=== PATIENT | male | born 1965 | race Caucasian/White ===

== ENCOUNTER 2017-04-04 23:29 | Outpatient (CLI) | payer SELFPAY | END 2017-04-04 23:30 | disposition critical access hospital (66) | LOC: EMS 23:29 | PROVIDERS: ATTEND Surgery | DX: R07.9 Chest pain, unspecified (principal) | CPT/HCPCS: A0425; A0427 ==

== ENCOUNTER 2017-04-05 00:03 | Emergency (ER) | payer SELFPAY ==
--- NOTE | 2017-04-05 00:30 | ED Physician Documentation ---
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 No: Diaphoresis, Nausea, Vomiting, Feeling faint / dizzy Similar symptoms before: Has not had sx before Recently seen: Not recently seen - Additional information Additional information: patient is visiting [place] from [place], was at [facility] when he had sudden onset left chest pain radiating down left arm. He also had hematemesis x 2 at that time, which he says is also not something he has experienced before. He has factor V Leiden, which has resulted in BLE DVT, for which he was initially put on Coumadin and Lovenox without improvement and thus he had filters put in bilateral iliac veins. He is on eliquis for the leiden and DVT history Review of Systems Constitutional: reports: Reviewed and negative Eyes: reports: Reviewed and negative Ears: reports: Reviewed and negative Nose: reports: Reviewed and negative Throat: reports: Reviewed and negative Cardiac: reports: Chest pain / pressure, Pedal edema (BLE (he says this is new, noticed over past 1-2 days)). denies: Palpitations, Calf pain Respiratory: reports: Dyspnea. denies: Cough, Hemoptysis, Wheezing GI: reports: Vomiting, Hematemesis. denies: Abdominal Pain, Nausea, Bloody / black stool : denies: Dysuria, Frequency Skin: reports: Reviewed and negative Musculoskeletal: reports: Reviewed and negative Neurologic: reports: Reviewed and negative PD PAST MEDICAL HISTORY - Past Medical History Past Medical History: Yes Cardiovascular: Deep vein thrombosis - Past Surgical History Other past surgical history: bilateral iliac vein filters - Present Medications Home Medications: Ambulatory Orders Medication Instructions Recorded Confirmed Apixaban [Eliquis] 5 mg 04/05/17 - Allergies Allergies/Adverse Reactions: Allergies Allergy/AdvReac Type Severity Reaction Status Date / Time No Known Drug Allergies Allergy Verified 04/05/17 01:33 - Living Situation Living Situation: reports: Alone Living Arrangement: reports: At home - Social History Does the pt drink ETOH?: No 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)) PD ED PE NORMAL - Vitals Vital signs reviewed: Yes - General General: Alert and oriented X 3, No acute distress, Well developed/nourished - HEENT HEENT: Moist mucous membranes - Neck Neck: Supple, no meningeal sign - Cardiac Cardiac: RRR, No murmur, No gallop, No rub - Respiratory Respiratory: No respiratory distress, Clear bilaterally - Abdomen Abdomen: Normal bowel sounds, Soft, Non tender, Non distended - Back Back: No CVA TTP - Derm Derm: Normal color, Warm and dry - Neuro Neuro: Alert and oriented X 3 PD ED PE EXPANDED - Extremities Extremities: Pedal edema bilateral Results - Vitals Vitals: Vital Signs - 24 hr 04/05/17 04/05/17 04/05/17 00:05 01:26 02:09 Temperature 36.3 C L 36.4 C L Heart Rate 88 68 66 Respiratory 20 15 20 Rate Blood Pressure 134/79 H 120/71 119/68 O2 Saturation 99 96 99 04/05/17 04/05/17 04/05/17 03:04 03:39 04:42 Temperature Heart Rate 77 64 72 Respiratory 15 20 15 Rate Blood Pressure 128/66 125/87 H 105/59 L O2 Saturation 100 95 98 04/05/17 08:12 Temperature 37.0 C Heart Rate 87 Respiratory 17 Rate Blood Pressure 128/75 O2 Saturation 99 Oxygen O2 Source Room air - EKG (time done) No standard instances Rate: Rate (enter#) (81) Rhythm: NSR [place]: Normal Intervals: Normal IN QRS: Normal Ischemia: ST elevation c/w repol - Labs Labs: Laboratory Tests 04/05/17 04/05/17 04/05/17 00:48 00:48 00:48 WBC 5.0 RBC 4.32 L Hgb 10.2 L Hct 32.5 L MCV 75.3 L MCH 23.6 L MCHC 31.4 L RDW 18.4 H Plt Count 196 MPV 9.3 Neut # 3.1 Lymph # 1.0 L [place] # 0.5 Eos # 0.5 Baso # 0.0 Absolute Nucleated RBC 0.00 Nucleated RBC % 0.0 PT 12.9 H INR 1.1 APTT 24.7 L Sodium 137 Potassium 3.7 Chloride 102 Carbon Dioxide 26 Anion Gap 9.0 BUN 24 H Creatinine 0.7 Estimated GFR (MDRD) 120 Glucose 116 H Calcium 8.8 Troponin I B-Natriuretic Peptide 04/05/17 04/05/17 00:48 00:48 WBC RBC Hgb Hct MCV MCH MCHC RDW Plt Count MPV Neut # Lymph # [place] # Eos # Baso # Absolute Nucleated RBC Nucleated RBC % PT INR APTT Sodium Potassium Chloride Carbon Dioxide Anion Gap BUN Creatinine Estimated GFR (MDRD) Glucose Calcium Troponin I < 0.04 B-Natriuretic Peptide 27 - Rads (name of study) chest xray Radiology: Prelim report reviewed, See rad report PD MEDICAL DECISION MAKING - ED course Complexity details: reviewed results, re-evaluated patient, considered differential, d/w patient ED course: Initially, plan was to admit this patient to [facility], and Dr. Mae evaluated patient in ED and was prepared to write admission orders. However, she was unaware that there are no surgical services available at [facility] this weekend due to construction, and when she realized this during our discussion of the case ( after she evaluated patient), she recommended transfer to facility that has EGD capability. D/W GI telecommunications facility examiner at [facility] who agrees patient would be appropriate for transfer to [facility], but to hospitalist's service. D/W Dr. Lazaro, accepts for transfer. RNs able to draw blood but after multiple attempts, they were unable to establish IV. I then tried right EJ but was unable to do so. Medic (Pepe) was in ED after having brought in another patient, and I asked if he could attempt EJ. He was able to establish left EJ, and patient was subsequently transferred to [facility]. Departure - Departure Disposition: 02 Transfer Acute Care Hosp Clinical Impression: Chest pain, Upper gastrointestinal bleeding Condition: Stable Discharge Date/Time: 04/05/17 08:17
[2017-04-05 01:01] LABS: BASOPHILS % (AUTO) 0.6 %; EOSINOPHILS # (AUTO) 0.5 10^3/uL (0.0-0.7); EOSINOPHILS % (AUTO) 9.3 %; HCT - HEMATOCRIT 32.5 % (42.0-52.0); HGB - HEMOGLOBIN 10.2 g/dL (14.0-18.0); LYMPHOCYTES % (AUTO) 19.7 %; MEAN CORPUSCULAR HEMOGLOBIN 23.6 pg (27.0-31.0); MEAN CORPUSCULAR HGB CONC 31.4 g/dL (32.0-36.0); MEAN CORPUSCULAR VOLUME 75.3 fL (80.0-94.0); MEAN PLATELET VOLUME 9.3 fL (7.4-11.4); MONOCYTES # (AUTO) 0.5 10^3/uL (0.0-1.0); MONOCYTES % (AUTO) 9.6 %; NEUTROPHILS # (AUTO) 3.1 10^3/uL (1.5-6.6); NEUTROPHILS % (AUTO) 60.8 %; RED BLOOD COUNT 4.32 10^6/uL (4.70-6.10); RED CELL DISTRIBUTION WIDTH 18.4 % (12.0-15.0)
[2017-04-05 01:02] LABS: INR 1.1 (0.8-1.2); PT - PROTHROMBIN TIME 12.9 secs (9.9-12.6)
[2017-04-05 01:06] LABS: CALCIUM 8.8 mg/dL (8.5-10.3); CREATININE 0.7 mg/dL (0.6-1.2); POTASSIUM 3.7 mmol/L (3.5-5.0)
[2017-04-05 01:09] LABS: PARTIAL THROMBOPLASTIN TIME 24.7 secs (24.9-33.3)
--- NOTE | 2017-04-05 01:28 | XRAY Preliminary Report ---
Exam: XR CHEST 2 VIEW PA/LAT IMPRESSION: Hypoventilatory single view chest with borderline cardiomegaly but without definite acute process. [id number]
--- NOTE | 2017-04-05 01:31 | XRAY Report ---
EXAM: CHEST RADIOGRAPHY EXAM DATE: 04/05/2017 01:06 AM. CLINICAL HISTORY: Chest pain. COMPARISON: 03/28/2017, CT 03/29/2017. TECHNIQUE: 2 views. FINDINGS: Lungs/Pleura: Low volumes. No focal opacities evident with exception of mild left lung base probable scarring/atelectasis over the elevated diaphragm. No gross pneumothorax or large effusion. Mediastinum: Borderline cardiomegaly. No mediastinal shift. Other: None. IMPRESSION: Hypoventilatory single view chest with borderline cardiomegaly but without definite acute process. [facility] Referring Provider Line: [phone] SITE ID: [id number]
[2017-04-05] MEDS ORDERED: LIDOCAINE 1% 2 ML VIAL ONE (05:29)
[2017-04-05] MEDS ORDERED: MORPHINE 2 MG/ML SYRINGE IVP STA (06:18)
[2017-04-05] MEDS ORDERED: MORPHINE 2 MG/ML SYRINGE ONE (06:25)
[2017-04-05] MEDS ORDERED: SODIUM CHLORIDE 0.9% 1,000 ML IV STA (07:08)
[2017-04-05 08:12] VITALS: BP 128/75
--- NOTE | 2017-04-05 10:04 | CONSULTATION NOTE ---
OUTPATIENT/ER CONSULTATION DATE OF CONSULTATION: 04/05/2017 00:00:00 REQUESTING PROVIDER: Consultation was requested by the ER physician, Dr. Zambrano. REASON FOR CONSULTATION: To evaluate the patient for admission to [facility] for rapid cardiac rule out. HISTORY OF PRESENT ILLNESS: The patient is a 51-year-old white male who is visiting from [place], we do not have prior medical records of this patient in our system. The patient reported somewhat contradictory history to EMS ER and finally to me. Initially, at EMS and to the ER physician, the patient reported that his chief complaint was chest pain which started suddenly, radiating to his left arm. Subsequently, when I interviewed him, he reported the following history. Around 10 p.m. on 04/04/2017, [facility] at which time his "heart started pounding," he described it as a fast heartbeat but no chest pain. Subsequently, he became nauseous and vomited fresh red blood. It was about a cup full. He never experienced similar problem in the past. It worried him quite a bit. Therefore, he asked the [facility] terminal attendant to call 911. When I examined this patient, he did not report any symptoms of chest pain or shortness of breath. Other than vomiting blood, he really offered no complaint. Subsequently, when I examined him and I noticed he had lymphedema and I asked him about swollen legs, he told me that that is a new problem as well and has been present for about a day. The patient denied undergoing any GI procedures such as upper GI endoscopy or colonoscopy, he never had any bowel problem and never experienced GI bleed prior to today. The patient's background is notable for factor V Leiden deficiency. He reports taking Eliquis, and aspirin. In addition, he also reports having an IVC filter, although somewhat unusual that he reports he has bilateral iliac IVC filters. PAST MEDICAL HISTORY: 1. DVT. 2. Factor V deficiency. MEDICATIONS: 1. Eliquis. 2. Aspirin. FAMILY HISTORY: Positive for cerebrovascular accident and coronary artery disease in the mother and factor V deficiency. SOCIAL HISTORY: The patient does not smoke, does not drink, denied illicit drug use. He used to work at [employer], had a desk job. REVIEW OF SYSTEMS: Please see pertinent positives and pertinent negatives listed above in history of present illness. The patient did not report additional complaints on the 12-point review. ER workup reviewed per electronic medical record. Pertinent positives included anemia with hemoglobin of 10.2 and hematocrit of 32.5. Platelet count was 196, normal. INR was 1.1, PT 12.9, PTT 24.7. BNP was not elevated. Troponin was negative. EKG was unremarkable. BUN was 24, creatinine was 0.7. Chest x-ray showed borderline cardiomegaly, no acute abnormality. PHYSICAL EXAMINATION: VITAL SIGNS: Temperature 36.4 Celsius, heart rate between 64 and 88, blood pressure 120/60, respiratory rate 20, oxygen saturation 100% on room air. GENERAL: The patient is a well-developed male with truncal obesity. NEUROLOGIC: Alert, oriented, nonfocal. PSYCH: Cooperative. SKIN: Mild pallor, no jaundice. LYMPH: 2+ lymphedema on both lower extremities, bilaterally symmetric. HEART: S1, S2 regular. No pathologic murmur. RESPIRATORY: Clear to auscultation without wheezes or crackles. ABDOMEN: Obese, benign, distended. Bowel tones present. MUSCULOSKELETAL: Atraumatic. ASSESSMENT AND RECOMMENDATIONS: The patient is a 51-year-old male with past medical history of Leiden V deficiency who is therapeutically anticoagulated, taking Eliquis. Initially, I started evaluating him for rapid cardiac rule out, but he did not offer much of a chest pain complaint. Subsequently, his history focused on vomiting fresh red blood. Putting it in context, he actually is anemic and I do not have previous records to see whether his anemia is acute or chronic. In addition, he is therapeutically anticoagulated on Eliquis, which increases his bleeding risk. Looking at other laboratories, his BUN is 24 with normal creatinine, which could indicate blood in the gut versus mild dehydration. In any case, at this point I cannot discount the patient's history that he might have had a GI bleed and for that, he will need to be evaluated. My recommendation is to use proton pump inhibitor, monitor the patient and I just learned talking to the ER physician that we do not have any capabilities over the weekend at [facility] to do endoscopies or have any coverage for such. Therefore, I think it would be risky to admit this patient here, not being able to provide service in case it is needed. It should also be considered that even if I rule this patient out for rapid cardiac rule out, after that discharge would be complicated, as the patient complains of a GI bleed and he is anticoagulated. Therefore, that would be a challenging issue to discharge him on Eliquis without prior GI evaluation. ACTIVE ISSUES/DIAGNOSES: 1. Possible chest pain, the patient did not offer much detail to me. He talked about a fast heartbeat which preceded hematemesis. 2. Hematemesis. 3. Therapeutic anticoagulation, on Eliquis. 4. History of deep venous thrombosis and factor V deficiency. 5. Lymphedema, appears chronic, BNP is normal. 6. Cardiomegaly on chest x-ray, but does not seem to have decompensated heart disease or heart failure. 7. Anemia with hemoglobin of 10, could be acute versus chronic. RECOMMENDATIONS: Given anemia and the complaint of GI bleed, although the patient is hemodynamically stable, I recommend that he get transferred to a hospital where gastroenterology coverage is available over the weekend. Time spent in the care of this patient was [address] Zambrano for asking me to participate in the care of this patient. JOB #: [id number] [id number] JOB #:[id number] REGGIE
== END 2017-04-05 08:17 | disposition short-term general hospital (02) ==
LOC: ED 00:03
DX: K92.0 Hematemesis (principal); R07.9 Chest pain, unspecified; Z86.718 Personal history of other venous thrombosis and embolism; Z79.01 Long term (current) use of anticoagulants
CPT/HCPCS: 36415; 71020; 80048; 83880; 84484; 85025; 85610; 85730; 93005; 96374; 99284; 99285; J2270

== ENCOUNTER 2017-04-05 08:16 | Outpatient (CLI) | payer SELFPAY | END 2017-04-05 08:17 | disposition short-term general hospital (02) | LOC: EMS 08:16 | PROVIDERS: ATTEND Surgery | DX: R07.9 Chest pain, unspecified (principal); K92.2 Gastrointestinal hemorrhage, unspecified | CPT/HCPCS: A0425; A0426 ==